=== PATIENT | female | born 1990 | race Caucasian/White ===

== ENCOUNTER 2024-01-13 23:34 | Emergency (ER) | payer OTHER ==
[~2024-01-13] VITALS: Ht 154.9 cm; Wt 79.4 kg
[2024-01-13 23:54] VITALS: PULSE 66; RESP 16; TEMP 98.1; O2SAT 95
[2024-01-14] MEDS ORDERED: CARB15DR61 OT (01:43)
== END 2024-01-14 02:00 | disposition home or self-care (01) ==
LOC: MED 23:34
DX: H61.23 Impacted cerumen, bilateral (principal)
CPT/HCPCS: 99282